=== PATIENT | male | born 1980 | race Caucasian/White ===

== ENCOUNTER 2018-11-19 15:17 | Inpatient (IN) | payer OTHER ==
[2018-11-19] MEDS: ONDANSETRON 4 MG INJ IV (15:40)
[2018-11-19] MEDS: HYDROmorphONE 1 MG/ML SYG IV (15:40)
[2018-11-19] MEDS: SOD CHLORIDE 0.9% 1,000 ML IV (15:40)
[2018-11-19 15:48] LABS: ADD MAN DIFF? NO
[2018-11-19] MEDS: CEFAZOLIN 1 GM/50 ML (PMX) 50 ML IVPB (15:49)
[2018-11-19] MEDS: DIPHTH/TET/ACEL PERTUSS (ADULT) 0.5 ML VIAL IM* ×3 (15:49→17:56)
[2018-11-19 15:57] LABS: WHITE BLOOD COUNT 5.8 10^3/ul (4.8-10.8)
[2018-11-19 15:57] LABS: BASOPHILS % 0.5 % (0.0-2.0); EOSINOPHILS # 0.2 10^3/ul (0.0-0.5); EOSINOPHILS % 2.9 % (0.0-7.0); HEMOGLOBIN 12.9 g/dl (14.0-18.0); LYMPHOCYTES # 1.7 10^3/ul (0.8-2.9); LYMPHOCYTES % 29.7 % (15.0-51.0); MEAN CORPUSCULAR HEMOGLOBIN 30.1 pg (29.0-33.0); MEAN CORPUSCULAR HGB CONC 33.1 g/dl (32.0-37.0); MEAN CORPUSCULAR VOLUME 91.1 fl (82.0-101.0); MEAN PLATELET VOLUME 10.5 fl (7.4-10.4); MONOCYTE # 0.6 10^3/ul (0.3-0.9); MONOCYTES % 10.5 % (0.0-11.0); NEUTROPHIL # 3.3 10^3/ul (1.6-7.5); NEUTROPHILS % 56.2 % (39.0-77.0); PLATELET COUNT 171 10^3/UL (140-415); RED BLOOD COUNT 4.28 10^6/ul (4.70-6.10); RED CELL DISTRIBUTION WIDTH 12.8 % (11.5-14.5)
[2018-11-19 16:20] LABS: ANION GAP 6 (5-13); BLOOD UREA NITROGEN 13 mg/dl (7-20); CALCIUM 7.7 mg/dl (8.4-10.2); CARBON DIOXIDE 22 mmol/L (21-31); CHLORIDE 114 mmol/L (97-110); Estimated GFR > 60 mL/min (>60); GLUCOSE 80 mg/dl (70-220); POTASSIUM 3.1 mmol/L (3.5-5.1); SODIUM 142 mmol/L (135-144)
[2018-11-19] MEDS ORDERED: VANCOMYCIN IV PER PHARMACY XX (16:30)
[2018-11-19] MEDS ORDERED: NACL 0.9% 3 ML SYG IV (16:30)
[2018-11-19] MEDS ORDERED: ONDANSETRON 4 MG INJ IV (16:30)
[2018-11-19] MEDS: HYDROmorphONE 2 MG/ML SYG IV (16:48)
[2018-11-19] MEDS ORDERED: ALBUTEROL/IPRATROPIUM (NEB) 3 ML AMP HHN (17:00)
[2018-11-19] MEDS: DEXTROSE 5%-0.45% NACL 1,000 ML IV (17:00)
[2018-11-19] MEDS: POTASSIUM CHLORIDE 100 ML IVPB ×2 (17:03→20:14)
[2018-11-19] MEDS: ALBUTEROL/IPRATROPIUM (NEB) 3 ML AMP HHN ×2 (17:36→19:27)
[2018-11-19] MEDS: FAMOTIDINE 20 MG INJ IV (17:39)
[2018-11-19 17:56] LABS: ALANINE AMINOTRANSFERASE 38 IU/L (13-69); ALBUMIN 3.4 g/dl (3.3-4.9); ALKALINE PHOSPHATASE 64 IU/L (42-121); ASPARTATE AMINO TRANSFERASE 17 IU/L (15-46); BILIRUBIN,INDIRECT 0.4 mg/dl (0-1.1); BILIRUBIN,TOTAL 0.4 mg/dl (0.2-1.3); TOTAL PROTEIN 5.8 g/dl (6.1-8.1)
[2018-11-19 17:59] LABS: PLATELET COUNT 171 10^3/UL (140-415)
[2018-11-19 18:03] LABS: INR 0.98; PARTIAL THROMBOPLASTIN TIME 26.1 Sec (23.0-35.0); PROTIME 13.1 Sec (11.9-14.9)
[2018-11-19 18:51] LABS: THROMBIN TIME 15.5 SEC (13.8-19.1)
[2018-11-19] MEDS: PIPER-TAZO 3.375 GM IV (PMX) 100 ML IVPB (19:07)
[2018-11-19] MEDS: CALCIUM GLUCONATE 10% 1 GM in DEXTROSE 5% 100 ML IVPB (20:10)
[2018-11-19] MEDS: VANCOMYCIN HCL 1.5 GM in SOD CHLORIDE 0.9% 250 ML IVPB (20:44)
[2018-11-19] MEDS: morphine 2 MG INJ IV (22:27)
[2018-11-20] MEDS: POTASSIUM CHLORIDE 100 ML IVPB (00:12)
[2018-11-20] MEDS: PIPER-TAZO 3.375 GM IV (PMX) 100 ML IVPB ×4 (00:14→17:33)
[2018-11-20] MEDS: DEXTROSE 5%-0.45% NACL 1,000 ML IV ×2 (02:20→05:38)
[2018-11-20] MEDS: VANCOMYCIN 1 GM 250 ML IVPB ×3 (04:18→22:37)
[2018-11-20] MEDS: FAMOTIDINE 20 MG INJ IV ×2 (04:39→17:33)
[2018-11-20] MEDS: morphine 2 MG INJ IV ×3 (04:45→22:35)
[2018-11-20 05:33] LABS: ADD MAN DIFF? NO
[2018-11-20 05:34] LABS: WHITE BLOOD COUNT 4.8 10^3/ul (4.8-10.8)
[2018-11-20 05:34] LABS: BASOPHILS % 0.2 % (0.0-2.0); EOSINOPHILS # 0.2 10^3/ul (0.0-0.5); EOSINOPHILS % 3.3 % (0.0-7.0); HEMATOCRIT 34.7 % (42.0-52.0); HEMOGLOBIN 11.3 g/dl (14.0-18.0); LYMPHOCYTES # 1.7 10^3/ul (0.8-2.9); LYMPHOCYTES % 35.4 % (15.0-51.0); MEAN CORPUSCULAR HEMOGLOBIN 30.5 pg (29.0-33.0); MEAN CORPUSCULAR HGB CONC 32.6 g/dl (32.0-37.0); MEAN CORPUSCULAR VOLUME 93.5 fl (82.0-101.0); MONOCYTE # 0.6 10^3/ul (0.3-0.9); MONOCYTES % 11.9 % (0.0-11.0); NEUTROPHIL # 2.4 10^3/ul (1.6-7.5); NEUTROPHILS % 49.2 % (39.0-77.0); PLATELET COUNT 138 10^3/UL (140-415); POSITIVE DIFF @See below; RED BLOOD COUNT 3.71 10^6/ul (4.70-6.10); RED CELL DISTRIBUTION WIDTH 12.9 % (11.5-14.5)
[2018-11-20 06:00] LABS: HEMOGLOBIN A1C 5.2 % (0-5.9)
[2018-11-20] MEDS ORDERED: PANTOPRAZOLE 40 MG INJ IV (06:00)
[2018-11-20 06:23] LABS: ALANINE AMINOTRANSFERASE 34 IU/L (13-69); ALBUMIN 3.4 g/dl (3.3-4.9); ALBUMIN/GLOBULIN RATIO 1.25; ALKALINE PHOSPHATASE 59 IU/L (42-121); ANION GAP 5 (5-13); ASPARTATE AMINO TRANSFERASE 17 IU/L (15-46); BILIRUBIN,INDIRECT 0.3 mg/dl (0-1.1); BILIRUBIN,TOTAL 0.3 mg/dl (0.2-1.3); BLOOD UREA NITROGEN 10 mg/dl (7-20); CARBON DIOXIDE 24 mmol/L (21-31); CHLORIDE 112 mmol/L (97-110); CREATININE 0.82 mg/dl (0.61-1.24); Estimated GFR > 60 mL/min (>60); GLUCOSE 91 mg/dl (70-220); MAGNESIUM 2.2 mg/dl (1.7-2.5); POTASSIUM 4.2 mmol/L (3.5-5.1); SODIUM 141 mmol/L (135-144); TOTAL PROTEIN 6.1 g/dl (6.1-8.1)
[2018-11-20] MEDS ORDERED: SEVOFLURANE 15 MIN ×2 (07:00)
[2018-11-20] MEDS ORDERED: CEFAZOLIN 1 GM INJ (07:00)
[2018-11-20] MEDS: ALBUTEROL/IPRATROPIUM (NEB) 3 ML AMP HHN ×3 (08:00→20:00)
[2018-11-20] MEDS ORDERED: LIDOCAINE 1% (MPF) 30 ML INJ (12:38)
[2018-11-20] MEDS ORDERED: BUPIVACAINE 0.5% (SDV) 30 ML INJ (12:38)
[2018-11-20] MEDS ORDERED: POLYMYXIN/BACITRACIN 1L IRRIG (13:38)
[2018-11-20] MEDS ORDERED: POLYMYXIN B 500000 UNIT INJ (13:38)
[2018-11-20] MEDS ORDERED: GENTAMICIN 80 MG INJ (14:08)
[2018-11-20] MEDS ORDERED: VANCOMYCIN 1 GM INJ (14:08)
[2018-11-20] MEDS ORDERED: PROPOFOL 20 ML (14:31)
[2018-11-20] MEDS ORDERED: LIDOCAINE 2% (SDV) 5 ML INJ (14:31)
[2018-11-20] MEDS ORDERED: LABETALOL HCL 20MG INJ IV (15:00)
[2018-11-20] MEDS ORDERED: MIDAZOLAM 1 MG/ML 2 ML INJ IV (15:00)
[2018-11-20] MEDS ORDERED: hydrALAzine 20 MG INJ IV (15:00)
[2018-11-20] MEDS ORDERED: DIPHENHYDRAMINE 50 MG INJ IV (15:00)
[2018-11-20] MEDS ORDERED: MEPERIDINE 25 MG INJ IV (15:00)
[2018-11-20] MEDS ORDERED: ALBUTEROL 0.083% (NEB) 2.5 MG/3 ML AMP HHN (15:00)
[2018-11-20] MEDS ORDERED: HYDROmorphONE 1 MG/5 ML IV SYRINGE IV ×3 (15:00)
[2018-11-20] MEDS ORDERED: FENTAnyl 50 MCG/ML VIAL IV ×3 (15:00)
[2018-11-20] MEDS ORDERED: EPHEDrine 25 MG/5 ML SYG IV (15:00)
[2018-11-20] MEDS ORDERED: ONDANSETRON 4 MG INJ IV (15:00)
[2018-11-20] MEDS: ACETAMINOPHEN 325 MG TAB PO (15:24)
[2018-11-20 22:45] LABS: VANCOMYCIN,TROUGH 8.9 ug/ml (10.0-20.0)
[2018-11-20] MEDS: HYDROCODONE/APAP (5/325) TAB PO (23:49)
[2018-11-21] MEDS: DEXTROSE 5%-0.45% NACL 1,000 ML IV (00:28)
[2018-11-21] MEDS: PIPER-TAZO 3.375 GM IV (PMX) 100 ML IVPB ×5 (00:30→23:13)
[2018-11-21] MEDS: morphine 4 MG/ML VIAL IV ×3 (01:16→13:25)
[2018-11-21] MEDS: HYDROCODONE/APAP (5/325) TAB PO ×5 (03:53→20:07)
[2018-11-21] MEDS: FAMOTIDINE 20 MG INJ IV ×2 (05:40→17:46)
[2018-11-21 06:18] LABS: ADD MAN DIFF? NO
[2018-11-21 06:24] LABS: WHITE BLOOD COUNT 6.1 10^3/ul (4.8-10.8)
[2018-11-21 06:24] LABS: BASOPHILS % 0.3 % (0.0-2.0); EOSINOPHILS # 0.2 10^3/ul (0.0-0.5); EOSINOPHILS % 2.9 % (0.0-7.0); HEMATOCRIT 37.1 % (42.0-52.0); HEMOGLOBIN 12.1 g/dl (14.0-18.0); LYMPHOCYTES # 1.8 10^3/ul (0.8-2.9); LYMPHOCYTES % 29.6 % (15.0-51.0); MEAN CORPUSCULAR HEMOGLOBIN 30.4 pg (29.0-33.0); MEAN CORPUSCULAR HGB CONC 32.6 g/dl (32.0-37.0); MEAN CORPUSCULAR VOLUME 93.2 fl (82.0-101.0); MEAN PLATELET VOLUME 11.3 fl (7.4-10.4); MONOCYTE # 0.7 10^3/ul (0.3-0.9); MONOCYTES % 10.9 % (0.0-11.0); NEUTROPHIL # 3.4 10^3/ul (1.6-7.5); PLATELET COUNT 156 10^3/UL (140-415); RED BLOOD COUNT 3.98 10^6/ul (4.70-6.10); RED CELL DISTRIBUTION WIDTH 12.8 % (11.5-14.5)
[2018-11-21] MEDS: VANCOMYCIN HCL 1.25 GM in SOD CHLORIDE 0.9% 250 ML IVPB ×3 (06:38→23:01)
[2018-11-21 07:08] LABS: PHOSPHORUS 4.6 mg/dl (2.5-4.9)
[2018-11-21 07:08] LABS: MAGNESIUM 2.2 mg/dl (1.7-2.5)
[2018-11-21 07:18] LABS: ANION GAP 7 (5-13); BLOOD UREA NITROGEN 15 mg/dl (7-20); CARBON DIOXIDE 27 mmol/L (21-31); CHLORIDE 107 mmol/L (97-110); CREATININE 0.94 mg/dl (0.61-1.24); Estimated GFR > 60 mL/min (>60); GLUCOSE 95 mg/dl (70-220); POTASSIUM 4.1 mmol/L (3.5-5.1); SODIUM 141 mmol/L (135-144)
[2018-11-21] MEDS: ENOXAPARIN 40 MG/0.4 ML SYG SC (08:26)
[2018-11-21] MEDS: ALBUTEROL/IPRATROPIUM (NEB) 3 ML AMP HHN (09:00)
[2018-11-21 10:13] LABS: IRON 63 ug/dl (35-150)
[2018-11-21 10:22] LABS: % IRON SATURATION 27 % SAT (22-52); TOTAL IRON BINDING CAPACITY 234 ug/dl (241-421)
[2018-11-21 15:37] LABS: C-REACTIVE PROTEIN 1.6 mg/dl (0.0-0.9)
[2018-11-21 16:25] LABS: ERYTHROCYTE SEDIMENTATION RATE 10 mm/Hr (0-15)
[2018-11-21 17:06] LABS: PROCALCITONIN 0.05 ng/mL (0.00-0.10)
[2018-11-21] MEDS: DOCUSATE SODIUM 100 MG CAP PO (23:03)
[2018-11-22] MEDS: morphine 4 MG/ML VIAL IV ×2 (00:02→08:44)
[2018-11-22] MEDS: VANCOMYCIN HCL 1.25 GM in SOD CHLORIDE 0.9% 250 ML IVPB ×3 (00:04→22:18)
[2018-11-22] MEDS: PIPER-TAZO 3.375 GM IV (PMX) 100 ML IVPB ×3 (06:18→20:14)
[2018-11-22 07:59] LABS: ADD MAN DIFF? NO
[2018-11-22 08:03] LABS: BASOPHILS % 0.2 % (0.0-2.0); EOSINOPHILS # 0.2 10^3/ul (0.0-0.5); EOSINOPHILS % 3.8 % (0.0-7.0); HEMATOCRIT 36.3 % (42.0-52.0); HEMOGLOBIN 11.9 g/dl (14.0-18.0); LYMPHOCYTES # 1.4 10^3/ul (0.8-2.9); LYMPHOCYTES % 29.1 % (15.0-51.0); MEAN CORPUSCULAR HEMOGLOBIN 30.4 pg (29.0-33.0); MEAN CORPUSCULAR HGB CONC 32.8 g/dl (32.0-37.0); MEAN CORPUSCULAR VOLUME 92.8 fl (82.0-101.0); MEAN PLATELET VOLUME 11.1 fl (7.4-10.4); MONOCYTE # 0.6 10^3/ul (0.3-0.9); MONOCYTES % 12.3 % (0.0-11.0); NEUTROPHIL # 2.7 10^3/ul (1.6-7.5); NEUTROPHILS % 54.2 % (39.0-77.0); PLATELET COUNT 137 10^3/UL (140-415); RED BLOOD COUNT 3.91 10^6/ul (4.70-6.10); RED CELL DISTRIBUTION WIDTH 12.4 % (11.5-14.5)
[2018-11-22 08:03] LABS: WHITE BLOOD COUNT 4.9 10^3/ul (4.8-10.8)
[2018-11-22 08:27] LABS: VANCOMYCIN,TROUGH 15.9 ug/ml (10.0-20.0)
[2018-11-22 08:34] LABS: ANION GAP 6 (5-13); BLOOD UREA NITROGEN 19 mg/dl (7-20); CARBON DIOXIDE 27 mmol/L (21-31); CHLORIDE 106 mmol/L (97-110); CREATININE 0.84 mg/dl (0.61-1.24); Estimated GFR > 60 mL/min (>60); GLUCOSE 95 mg/dl (70-220); POTASSIUM 4.1 mmol/L (3.5-5.1); SODIUM 139 mmol/L (135-144)
[2018-11-22 08:42] LABS: MAGNESIUM 2.1 mg/dl (1.7-2.5)
[2018-11-22 08:42] LABS: PHOSPHORUS 4.2 mg/dl (2.5-4.9)
[2018-11-22 09:29] LABS: ERYTHROCYTE SEDIMENTATION RATE 15 mm/Hr (0-15)
[2018-11-22] MEDS: FAMOTIDINE 20 MG TAB PO ×2 (10:17→20:13)
[2018-11-22] MEDS: DOCUSATE SODIUM 100 MG CAP PO ×3 (10:17→20:13)
[2018-11-22] MEDS: ENOXAPARIN 40 MG/0.4 ML SYG SC (10:19)
[2018-11-22] MEDS: HYDROCODONE/APAP (5/325) TAB PO ×2 (11:08→20:13)
[2018-11-23] MEDS: morphine 4 MG/ML VIAL IV (00:11)
[2018-11-23] MEDS: PIPER-TAZO 3.375 GM IV (PMX) 100 ML IVPB ×4 (02:40→20:52)
[2018-11-23] MEDS: VANCOMYCIN HCL 1.25 GM in SOD CHLORIDE 0.9% 250 ML IVPB ×3 (03:43→20:40)
[2018-11-23 05:08] LABS: ADD MAN DIFF? NO
[2018-11-23 05:14] LABS: BASOPHILS % 0.7 % (0.0-2.0); EOSINOPHILS # 0.3 10^3/ul (0.0-0.5); EOSINOPHILS % 6.1 % (0.0-7.0); HEMATOCRIT 38.5 % (42.0-52.0); HEMOGLOBIN 12.2 g/dl (14.0-18.0); LYMPHOCYTES # 1.5 10^3/ul (0.8-2.9); LYMPHOCYTES % 35.6 % (15.0-51.0); MEAN CORPUSCULAR HEMOGLOBIN 29.8 pg (29.0-33.0); MEAN CORPUSCULAR HGB CONC 31.7 g/dl (32.0-37.0); MEAN CORPUSCULAR VOLUME 93.9 fl (82.0-101.0); MONOCYTE # 0.6 10^3/ul (0.3-0.9); MONOCYTES % 13.8 % (0.0-11.0); NEUTROPHIL # 1.8 10^3/ul (1.6-7.5); NEUTROPHILS % 43.6 % (39.0-77.0); PLATELET COUNT 154 10^3/UL (140-415); RED CELL DISTRIBUTION WIDTH 12.3 % (11.5-14.5)
[2018-11-23 05:14] LABS: WHITE BLOOD COUNT 4.1 10^3/ul (4.8-10.8)
[2018-11-23 05:45] LABS: MAGNESIUM 2.2 mg/dl (1.7-2.5)
[2018-11-23 05:45] LABS: PHOSPHORUS 4.5 mg/dl (2.5-4.9)
[2018-11-23 05:54] LABS: ANION GAP 4 (5-13); BLOOD UREA NITROGEN 18 mg/dl (7-20); CALCIUM 9.3 mg/dl (8.4-10.2); CARBON DIOXIDE 31 mmol/L (21-31); CHLORIDE 105 mmol/L (97-110); CREATININE 0.95 mg/dl (0.61-1.24); Estimated GFR > 60 mL/min (>60); GLUCOSE 104 mg/dl (70-220); POTASSIUM 4.9 mmol/L (3.5-5.1); SODIUM 140 mmol/L (135-144)
[2018-11-23] MEDS: FAMOTIDINE 20 MG TAB PO ×2 (08:31→20:40)
[2018-11-23] MEDS: DOCUSATE SODIUM 100 MG CAP PO ×3 (08:31→20:40)
[2018-11-23] MEDS: HYDROCODONE/APAP (5/325) TAB PO ×3 (08:32→23:20)
[2018-11-23] MEDS: ENOXAPARIN 40 MG/0.4 ML SYG SC (08:33)
[2018-11-24] MEDS: PIPER-TAZO 3.375 GM IV (PMX) 100 ML IVPB ×4 (01:36→20:04)
[2018-11-24] MEDS: VANCOMYCIN HCL 1.25 GM in SOD CHLORIDE 0.9% 250 ML IVPB ×3 (02:44→20:04)
[2018-11-24] MEDS: DOCUSATE SODIUM 100 MG CAP PO ×3 (08:31→20:13)
[2018-11-24] MEDS: FAMOTIDINE 20 MG TAB PO ×2 (08:31→20:13)
[2018-11-24] MEDS: ENOXAPARIN 40 MG/0.4 ML SYG SC (08:32)
[2018-11-24] MEDS: HYDROCODONE/APAP (5/325) TAB PO ×3 (09:00→23:52)
[2018-11-24] MEDS: morphine 4 MG/ML VIAL IV (10:21)
[2018-11-25] MEDS: morphine 4 MG/ML VIAL IV (01:14)
[2018-11-25] MEDS: PIPER-TAZO 3.375 GM IV (PMX) 100 ML IVPB ×2 (02:24→08:57)
[2018-11-25] MEDS: VANCOMYCIN HCL 1.25 GM in SOD CHLORIDE 0.9% 250 ML IVPB ×2 (02:25→11:00)
[2018-11-25] MEDS: FAMOTIDINE 20 MG TAB PO (08:56)
[2018-11-25] MEDS: ENOXAPARIN 40 MG/0.4 ML SYG SC (08:56)
[2018-11-25] MEDS: DOCUSATE SODIUM 100 MG CAP PO (08:56)
[2018-11-25] MEDS: HYDROCODONE/APAP (5/325) TAB PO (11:19)
[2018-11-25 11:24] LABS: VANCOMYCIN,TROUGH 18.5 ug/ml (10.0-20.0)
== END 2018-11-25 12:36 | disposition home or self-care (01) | DRG 517 ==
LOC: E/R 15:17 → MS1 16:26
PROC: 0QBQ0ZZ Excision of Right Toe Phalanx, Open Approach (ICD-10-PCS; principal; 2018-11-20 11:30)
DX: S92.421B Displaced fracture of distal phalanx of right great toe, initial encounter for open fracture (principal); Z72.0 Tobacco use; R06.2 Wheezing; D64.9 Anemia, unspecified; W23.0XXA Caught, crushed, jammed, or pinched between moving objects, initial encounter; Y92.009 Unspecified place in unspecified non-institutional (private) residence as the place of occurrence of the external cause; S91.201A Unspecified open wound of right great toe with damage to nail, initial encounter
CPT/HCPCS: 36415; 71045; 73630; 80048; 80053; 80076; 80202; 82728; 83036; 83540; 83735; 84100; 84145; 85025; 85049; 85610; 85651; 85670; 85730; 86140; 87070; 87075; 87102; 88304; 88311; 88312; 90715; 93005; 94640; 94664; 96374; 96375; 97116; 97161; 97530; 99285-25